=== PATIENT | male | born 1960 | race Two or more races ===

== ENCOUNTER 2020-03-15 09:00 | Day surgery (SDC) | payer OTHER | END 2020-03-15 12:55 | disposition home or self-care (01) | LOC: AMB-ENDOS 09:00 | PROVIDERS: ATTEND Surgery | DX: D12.3 Benign neoplasm of transverse colon (principal); Z20.828 Contact with and (suspected) exposure to other viral communicable diseases ==

== ENCOUNTER 2020-10-04 06:36 | Day surgery (SDC) | payer OTHER | END 2020-10-04 11:50 | disposition home or self-care (01) | LOC: AMB-ENDOS 06:36 | PROVIDERS: ATTEND Surgery | DX: K62.82 Dysplasia of anus (principal); D12.3 Benign neoplasm of transverse colon; Z20.822 Contact with and (suspected) exposure to COVID-19 ==

== ENCOUNTER 2021-06-20 05:30 | Day surgery (SDC) | payer OTHER | END 2021-06-20 11:46 | disposition home or self-care (01) | LOC: AMB-ENDOS 05:30 | PROVIDERS: ATTEND Surgery | DX: K63.5 Polyp of colon (principal); Z80.0 Family history of malignant neoplasm of digestive organs; I10 Essential (primary) hypertension ==